=== PATIENT | male | born 1995 | race Caucasian/White ===

== ENCOUNTER 2021-10-30 15:48 | Emergency (ER) | payer OTHER ==
[~2021-10-30] VITALS: Ht 182.9 cm; Wt 113.4 kg
[2021-10-30] MEDS ORDERED: Cipro500 MG PO (16:18)
== END 2021-10-30 16:18 | disposition home or self-care (01) ==
LOC: ER 15:48
DX: H66.93 Otitis media, unspecified, bilateral (principal)
CPT/HCPCS: 99282

== ENCOUNTER 2022-02-21 19:00 | Emergency (ER) | payer OTHER ==
[~2022-02-21] VITALS: Ht 182.9 cm; Wt 108.9 kg
[~2022-02-21 19:00] MED LIST: Cipro500 MG PO
[2022-02-21 19:29] LABS: BASOPHILS ABSOLUTE AUTO 0.02 K/mm3 (0.00-0.23); BASOPHILS PERCENT AUTO 0 % (0-2); EOSINOPHILS ABSOLUTE AUTO 0.12 K/mm3 (0.00-0.68); EOSINOPHILS PERCENT AUTO 2 % (0-6); Hematocrit 43.1 % (37.0-53.0); Hemoglobin 14.8 g/dL (13.5-17.5); IMMATURE GRAN ABSOLUTE AUTO 0.02 K/mm3 (0.00-0.10); IMMATURE GRAN PERCENT AUTO 0 % (0-1); LYMPHOCYTES ABSOLUTE AUTO 1.78 K/mm3 (0.84-5.20); LYMPHOCYTES PERCENT AUTO 28 % (21-46); MONOCYTES ABSOLUTE AUTO 0.48 K/mm3 (0.16-1.47); MONOCYTES PERCENT AUTO 8 % (4-13); Mean Corpuscular HGB 30.8 pg (26.0-34.0); Mean Corpuscular HGB Conc 34.3 g/dL (31.5-36.5); Mean Corpuscular Volume 90 fL (80-100); Mean Platelet Volume 11.4 fL (9.1-12.4); NEUTROPHILS ABSOLUTE AUTO 3.93 K/mm3 (1.96-9.15); NEUTROPHILS PERCENT AUTO 62 % (41-73); Platelet Count 233 K/mm3 (150-400); RDW Coefficient Variation 12.1 % (11.7-14.2); RDW Standard Deviation 39.5 fL (35.1-46.3); White Blood Cell Count 6.35 K/mm3 (4.00-11.30)
[2022-02-21 19:48] LABS: Albumin, Blood 4.1 g/dL (3.4-5.0); Albumin/Globulin Ratio 1.2 (0.8-1.8); Bilirubin, Total 0.5 mg/dL (0.1-1.0); Bun/Creatinine Ratio 21.4 (12.0-20.0); Calcium, Blood 9.1 mg/dL (8.5-10.1); Creatinine, Blood 0.93 mg/dL (0.60-1.20); Globulin, Blood 3.3 g/dL (2.2-4.0); Potassium, Blood 3.8 mmol/L (3.5-5.5); Total Protein, Blood 7.4 g/dL (6.4-8.2)
== END 2022-02-21 22:07 | disposition home or self-care (01) ==
LOC: ER 19:00
PROVIDERS: Student in an Organized Health Care Education/Training Program
DX: R07.9 Chest pain, unspecified (principal); Z88.6 Allergy status to analgesic agent; Z82.49 Family history of ischemic heart disease and other diseases of the circulatory system
CPT/HCPCS: 71045; 80053; 84484; 85025; 93005; 93010; 99285-25

== ENCOUNTER 2022-04-12 22:32 | Emergency (ER) | payer OTHER ==
[~2022-04-12] VITALS: Ht 182.9 cm; Wt 117.9 kg
[2022-04-13 00:59] LABS: BASOPHILS ABSOLUTE AUTO 0.01 K/mm3 (0.00-0.23); BASOPHILS PERCENT AUTO 0 % (0-2); EOSINOPHILS PERCENT AUTO 0 % (0-6); Hematocrit 45.6 % (37.0-53.0); Hemoglobin 15.8 g/dL (13.5-17.5); IMMATURE GRAN ABSOLUTE AUTO 0.03 K/mm3 (0.00-0.10); IMMATURE GRAN PERCENT AUTO 0 % (0-1); LYMPHOCYTES ABSOLUTE AUTO 0.26 K/mm3 (0.84-5.20); LYMPHOCYTES PERCENT AUTO 3 % (21-46); MONOCYTES ABSOLUTE AUTO 0.47 K/mm3 (0.16-1.47); MONOCYTES PERCENT AUTO 6 % (4-13); Mean Corpuscular HGB 30.7 pg (26.0-34.0); Mean Corpuscular HGB Conc 34.6 g/dL (31.5-36.5); Mean Corpuscular Volume 89 fL (80-100); NEUTROPHILS ABSOLUTE AUTO 7.73 K/mm3 (1.96-9.15); NEUTROPHILS PERCENT AUTO 91 % (41-73); Platelet Count 208 K/mm3 (150-400); RDW Coefficient Variation 11.9 % (11.7-14.2); RDW Standard Deviation 38.9 fL (35.1-46.3); Red Blood Cell Count 5.14 M/mm3 (4.30-5.90)
[2022-04-13 01:22] LABS: Albumin/Globulin Ratio 1.1 (0.8-1.8); Bilirubin, Total 0.9 mg/dL (0.1-1.0); Bun/Creatinine Ratio 28.3 (12.0-20.0); Calcium, Blood 9.1 mg/dL (8.5-10.1); Creatinine, Blood 0.85 mg/dL (0.60-1.20); Globulin, Blood 3.8 g/dL (2.2-4.0); Magnesium, Blood 1.8 mg/dL (1.6-2.4); Potassium, Blood 4.2 mmol/L (3.5-5.5); Total Protein, Blood 7.8 g/dL (6.4-8.2)
[2022-04-13 01:48] LABS: Influenza A, PCR NEGATIVE (NEGATIVE); Influenza B, PCR NEGATIVE (NEGATIVE); Resp Syncytial Virus, PCR NEGATIVE (NEGATIVE); SARS-Cov-2 (COVID-19) PCR, MMC NEGATIVE (NEGATIVE)
[2022-04-13] MEDS ORDERED: ONDA4ODT MM (02:58)
[2022-04-13] MEDS ORDERED: PROM12.5S PR (02:58)
== END 2022-04-13 03:50 | disposition home or self-care (01) ==
LOC: ER 22:32
PROVIDERS: Student in an Organized Health Care Education/Training Program
DX: A08.4 Viral intestinal infection, unspecified (principal); B34.9 Viral infection, unspecified; Z88.8 Allergy status to other drugs, medicaments and biological substances; Z20.822 Contact with and (suspected) exposure to COVID-19
CPT/HCPCS: 0241U; 36415; 80053; 82272; 83735; 85025; 96361; 96374; 96375; 99284-25; A9270; J1885; J2405; J2765; J7030

== ENCOUNTER 2022-06-30 08:16 | Emergency (ER) | payer OTHER ==
[~2022-06-30] VITALS: Ht 182.9 cm; Wt 105.2 kg
[~2022-06-30 08:16] MED LIST changes: +ONDA4ODT MM; +PROM12.5S PR
[2022-06-30] MEDS ORDERED: Percocet 5-3251 EACH PO (10:48)
[2022-06-30] MEDS ORDERED: METPRE4DP PO (10:48)
[2022-06-30] MEDS ORDERED: Robaxin750 MG PO (10:48)
== END 2022-06-30 11:15 | disposition home or self-care (01) ==
LOC: ER 08:16
DX: M54.50 Low back pain, unspecified (principal); Z88.6 Allergy status to analgesic agent
CPT/HCPCS: A9270; J1885

== ENCOUNTER 2022-08-22 09:13 | Emergency (ER) | payer OTHER ==
[~2022-08-22] VITALS: Ht 182.9 cm; Wt 117.9 kg
[~2022-08-22 09:13] MED LIST changes: +METPRE4DP PO; +Percocet 5-3251 EACH PO; +Robaxin750 MG PO
[2022-08-22] MEDS ORDERED: Bactrim Ds Tab1 EACH PO (10:03)
== END 2022-08-22 10:00 | disposition home or self-care (01) ==
LOC: ER 09:13
DX: L02.415 Cutaneous abscess of right lower limb (principal); Z88.6 Allergy status to analgesic agent
CPT/HCPCS: 99282

== ENCOUNTER 2023-01-16 08:55 | Emergency (ER) | payer SELFPAY ==
[~2023-01-16] VITALS: Ht 182.9 cm; Wt 122.5 kg
[~2023-01-16 08:55] MED LIST changes: +Bactrim Ds Tab1 EACH PO
[2023-01-16 10:45] VITALS: BP 128/86
[2023-01-16] MEDS ORDERED: Robaxin750 MG PO (10:54)
== END 2023-01-16 11:06 | disposition home or self-care (01) ==
LOC: ER 08:55
DX: M54.41 Lumbago with sciatica, right side (principal); M62.830 Muscle spasm of back; Z88.6 Allergy status to analgesic agent; W10.9XXA Fall (on) (from) unspecified stairs and steps, initial encounter
CPT/HCPCS: 72131; 96372; 99283-25; A9270; J1885